=== PATIENT | female | born 1970 | race African-American/Black ===

== ENCOUNTER 2022-07-05 13:03 | Emergency (ER) | payer OTHER ==
[~2022-07-05] VITALS: Ht 165.1 cm; Wt 111.3 kg
[2022-07-05] MEDS ORDERED: ACETAMINOPHEN 500 MG TABLET PO ONE (17:00)
[2022-07-05 18:36] VITALS: BP 120/85
== END 2022-07-05 19:24 | disposition home or self-care (01) ==
LOC: EMS 13:06
DX: G62.9 Polyneuropathy, unspecified (principal); I10 Essential (primary) hypertension; Z90.49 Acquired absence of other specified parts of digestive tract
CPT/HCPCS: 73200; 99285